=== PATIENT | male | born 1995 ===

== ENCOUNTER 2016-07-18 20:37 | Emergency (ER) | payer MEDICAID ==
[~2016-07-18] VITALS: Ht 177.8 cm; Wt 76.2 kg
[2016-07-18] MEDS ORDERED: NKM (20:46)
[2016-07-18 20:49] VITALS: BP 148/91
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
[2016-07-18] MEDS ORDERED: Ketorolac 30mg Inj IV ONE (21:15)
[2016-07-18] MEDS ORDERED: Morphine Sulfate 4mg/ml Inj IVP ONE ×2 (21:15→22:00)
[2016-07-18] MEDS ORDERED: NORCO 10-325 T1 EACH ORAL (22:04)
[2016-07-18] MEDS ORDERED: IBUPROFEN600 MG ORAL (22:04)
[2016-07-18 22:24] VITALS: BP 148/91
--- NOTE | 2016-07-20 11:23 | Diagnostic Imaging Report ---
Indication: PAIN, status post fall Technique: One view of the chest Comparison: none Findings: There is a comminuted fracture of the midshaft right clavicle. This overrides significantly, is displaced by one bone width. Lungs and pleural spaces are clear. No definite other bony abnormality. The heart size is normal. No pneumothorax Impression: No acute cardiopulmonary process Right clavicular fracture This agrees with the preliminary interpretation provided by the emergency room physician
== END 2016-07-18 22:30 | disposition home or self-care (01) ==
LOC: EMR 21:21
DX: S42.001A Fracture of unspecified part of right clavicle, initial encounter for closed fracture (principal); W19.XXXA Unspecified fall, initial encounter; Y93.55 Activity, bike riding; Y92.9 Unspecified place or not applicable
CPT/HCPCS: 29240; 71010; 96374; 96375; 99284; J1885; J2270; J2405